=== PATIENT | female | born 1995 | race Caucasian/White ===

== ENCOUNTER 2019-10-24 19:09 | Emergency (ER) | payer OTHER ==
[2019-10-24 19:26] VITALS: BP 120/83; PULSE 118; TEMP 98.3; BMI 21.7
--- NOTE | 2019-10-24 19:26 | PDOC ---
Rapid Medical Evaluation Medical Evaluation: Allergies Allergy/AdvReac Type Severity Reaction Status Date / Time No Known Allergies Allergy Unverified 08/17/15 00:45 I have performed a brief in-person evaluation of this patient. The patient presents with a chief complaint of: recently tested +MRSA from abdominal abscess; was on abx (unable to recall name), around 2 days ago noted swelling along ankles with rash and palmar erythema Pertinent physical exam findings: +petechial rash along BLE, nonblanching I have ordered the following: Labs The patient will proceed to the ED for further evaluation. 10/24/19 19:22
== END 2019-10-24 22:00 | disposition left against medical advice (07) ==
LOC: JER 19:09
DX: Z53.21 Procedure and treatment not carried out due to patient leaving prior to being seen by health care provider (principal)
CPT/HCPCS: 99281-25